=== PATIENT | female | born 1950 | race Caucasian/White ===

== ENCOUNTER 2017-09-09 08:40 | Emergency (ER) | payer MEDICARE, MEDICAID ==
[2017-09-09 08:47] VITALS: RESP 20; O2SAT 98
[2017-09-09 08:55] VITALS: BMI 29.2
[2017-09-09] MEDS ORDERED: Albuterol 0.083% Inhal Sol (2.5 mg/3 mL) UD IH STA ×2 (09:26→09:51)
[2017-09-09] MEDS ORDERED: Albuterol 0.083% Inhal Sol (2.5 mg/3 mL) UD ONE ×2 (09:39→09:49)
[2017-09-09] MEDS ORDERED: Albuterol-Ipratrop 3 mg / 0.5 (3 ml) UD IH STA (09:51)
--- NOTE | 2017-09-09 10:28 | C.PDOC ---
History Of Present Illness 66 year old female presents to the ER via EMS for evaluation of SOB and wheezing. Patient reports she has a Hx of asthma, is currently staying with her daughter who owns cats which aggravate her asthma. She was given IV Solumedrol and albuterol nebs in the field. Patient denies fever/chills, chest pain, palpitations, fever. Time Seen by Provider: 09/09/17 08:46 Chief Complaint (Nursing): Shortness Of Breath History Per: Patient History/Exam Limitations: no limitations Onset/Duration Of Symptoms: Hrs Current Symptoms Are (Timing): Still Present Initiating Event: Other (Exposure to cats) Current Respiratory Medications: See Home Med List Severity: Moderate Associated Symptoms: denies: Fever, Chills, Chest Pain, Heart Racing Past Medical History Reviewed: Historical Data, Nursing Documentation, Vital Signs Vital Signs: Last Vital Signs Temp 98.7 F 09/09/17 10:35 Pulse 80 09/09/17 10:35 Resp 20 09/09/17 10:35 BP 135/75 09/09/17 10:35 Pulse Ox 98 09/09/17 10:51 - Medical History PMH: Asthma, Bronchitis, Cardia Arrhythmia, Diabetes, HTN Family History: States: No Known Family Hx - Social History Hx Tobacco Use: No Hx Alcohol Use: No Hx Substance Use: No - Immunization History Hx Tetanus Toxoid Vaccination: No Hx Influenza Vaccination: No Hx Pneumococcal Vaccination: No Review Of Systems Except As Marked, All Systems Reviewed And Found Negative. Constitutional: Negative for: Fever, Chills Cardiovascular: Negative for: Chest Pain, Palpitations Respiratory: Positive for: Shortness of Breath, Wheezing. Negative for: Cough Gastrointestinal: Negative for: Nausea, Vomiting Genitourinary: Negative for: Dysuria, Hematuria Physical Exam - Physical Exam Appears: Well, Non-toxic, No Acute Distress, Other (Comfortable, speaking in complete sentences.) Skin: Normal Color, Warm, Dry Eye(s): bilateral: Normal Inspection Oral Mucosa: Moist Chest: Symmetrical Cardiovascular: Rhythm Regular Respiratory: No Rales, No Rhonchi, Wheezing (Mild expiratory wheezing B/L ) Gastrointestinal/Abdominal: Normal Exam, Bowel Sounds, Soft, No Tenderness Extremity: Normal ROM, No Pedal Edema, No Calf Tenderness Neurological/Psych: Oriented x3 ED Course And Treatment O2 Sat by Pulse Oximetry: 98 (Room air) Pulse Ox Interpretation: Normal Progress Note: Patient given albuterol/duoneb treatments. Reevaluation Time: 10:30 Reassessment Condition: Improved (Patient reassessed, is resting comfortable and states she feels much better. Peeak flow done by me is 300. Patient states she is comfortable being discharged home, and vitals are WNL. Rxs for albuterol inhaler, prednisone given. Patient instructed to follow up with PMD in 1-2 days, and she understands she should return to ED if symptoms worsen.) Disposition Counseled Patient/Family Regarding: Diagnosis, Need For Followup, Rx Given - Disposition Referrals: Lisette Villanueva MD [Medical Doctor] - Disposition: HOME/ ROUTINE Disposition Time: 10:30 Condition: STABLE Additional Instructions: FOLLOW UP WITH YOUR DOCTOR IN 1-2 DAYS USE MEDICATIONS DIRECTED RETURN TO ER IF SYMPTOMS WORSEN Prescriptions: Albuterol HFA [Ventolin HFA 90 mcg/actuation (8 g)] 0.09 mg IH Q4 PRN #1 puff PRN Reason: Wheezing predniSONE [predniSONE Tab] 60 mg PO DAILY #12 tab Instructions: Asthma (ED) Forms: [employer] (Egyptian) Print Language: ARABIC - POA Present On Arrival: None - Clinical Impression Clinical Impression: Asthma exacerbation - Scribe Statement The provider has reviewed the documentation as recorded by the Scribe Provider Attestation: Shad Zhao All medical record entries made by the Scribe were at my direction and personally dictated by me. I have reviewed the chart and agree that the record accurately reflects my personal performance of the history, physical exam, medical decision making, and the department course for this patient. I have also personally directed, reviewed, and agree with the discharge instructions and disposition.
[2017-09-09 11:01] VITALS: BP 135/75; PULSE 80; TEMP 98.7
== END 2017-09-09 10:35 | disposition home or self-care (01) ==
LOC: C.ER 08:40
DX: J45.901 Unspecified asthma with (acute) exacerbation (principal); I10 Essential (primary) hypertension; E11.9 Type 2 diabetes mellitus without complications

== ENCOUNTER 2017-12-07 07:41 | Emergency (ER) | payer MEDICARE, MEDICAID ==
[2017-12-07 07:46] VITALS: BMI 28.3
--- NOTE | 2017-12-07 08:43 | C.PDOC ---
History Of Present Illness 67-YEAR-OLD FEMALE, PRESENTS TO THE EMERGENCY DEPARTMENT WITH COMPLAINTS OF DRY COUGH, SORE THROAT SINCE YEST. NO FEVER. PRIOR HO FREQ BRONCHITIS LAST EPISODE "YEARS AGO". NO SOB, MENA OTHER ASSOC SX EXAM NARD NONTOXIC HEENT THROAT CLEAR NOSE CLEAR LUNGS DRY COUGH CTA B/L NO W/R/R NO RETRACTION SPEAKING FULL SENTENCES REMAINER NEG Time Seen by Provider: 12/07/17 08:15 Chief Complaint (Nursing): Cough, Cold, Congestion History Per: Patient History/Exam Limitations: no limitations Past Medical History Reviewed: Historical Data, Nursing Documentation, Vital Signs Vital Signs: Last Vital Signs Temp 98.2 F 12/07/17 10:20 Pulse 82 12/07/17 10:20 Resp 16 12/07/17 10:20 BP 144/70 12/07/17 10:20 Pulse Ox 99 12/07/17 10:20 - Medical History PMH: Asthma, Bronchitis, Cardia Arrhythmia, Diabetes, HTN Family History: States: No Known Family Hx - Social History Hx Tobacco Use: No Hx Alcohol Use: No Hx Substance Use: No - Immunization History Hx Tetanus Toxoid Vaccination: No Hx Influenza Vaccination: No Hx Pneumococcal Vaccination: No Review Of Systems Except As Marked, All Systems Reviewed And Found Negative. Constitutional: Negative for: Fever ENT: Negative for: Throat Pain Cardiovascular: Negative for: Chest Pain Respiratory: Positive for: Cough Gastrointestinal: Negative for: Vomiting Musculoskeletal: Negative for: Neck Pain, Back Pain Skin: Negative for: Rash Neurological: Negative for: Weakness, Numbness, Headache, Dizziness Physical Exam - Physical Exam Appears: Non-toxic, No Acute Distress Skin: Normal Color, Warm, Dry, No Rash Head: Normacephalic Eye(s): bilateral: PERRL Nose: Normal Lips: Normal Appearing Neck: Normal ROM Chest: Symmetrical Cardiovascular: Rhythm Regular, No Murmur Respiratory: No Accessory Muscle Use, Other ( DRY COUGH CTA B/L NO W/R/R NO RETRACTION SPEAKING FULL SENTENCES) Extremity: Normal ROM, No Deformity, No Swelling Neurological/Psych: Oriented x3, Normal Speech ED Course And Treatment O2 Sat by Pulse Oximetry: 96 (RA) Pulse Ox Interpretation: Normal Disposition Counseled Patient/Family Regarding: Studies Performed, Diagnosis, Need For Followup, Rx Given - Disposition Referrals: YOUR,PMD [Other] Disposition: HOME/ ROUTINE Disposition Time: 09:57 Condition: IMPROVED Prescriptions: Benzonatate [Tessalon Perles] 200 mg PO TID PRN #15 sgl PRN Reason: Cough Ibuprofen [Motrin] 400 mg PO QID #30 tab Instructions: Cough, Adult (DC) Forms: [facility] (Irish) - Clinical Impression Clinical Impression: Cough - Scribe Statement The provider has reviewed the documentation as recorded by the Scribe (Chaitanya Moscoso) All medical record entries made by the Scribe were at my direction and personally dictated by me. I have reviewed the chart and agree that the record accurately reflects my personal performance of the history, physical exam, medical decision making, and the department course for this patient. I have also personally directed, reviewed, and agree with the discharge instructions and disposition.
[2017-12-07] MEDS ORDERED: Albuterol 0.083% Inhal Sol (2.5 mg/3 mL) UD INH STA (09:13)
[2017-12-07] MEDS ORDERED: Albuterol 0.083% Inhal Sol (2.5 mg/3 mL) UD ONE (09:35)
[2017-12-07 10:22] VITALS: BP 144/70; PULSE 82; RESP 16; TEMP 98.2
[2017-12-07 10:26] VITALS: O2SAT 96
--- NOTE | 2017-12-07 14:19 | RAD ---
HISTORY: Cough COMPARISON: Comparison chest dated 06/30/2014 TECHNIQUE: Chest PA and lateral FINDINGS: LUNGS: Minor linear atelectasis and or scarring left lateral mid -lower lung field. PLEURA: No significant pleural effusion identified. No pneumothorax apparent. CARDIOVASCULAR: Heart size within range of normal OSSEOUS STRUCTURES: Mild multilevel degenerative spondylosis of the thoracic spine. And VISUALIZED UPPER ABDOMEN: Normal. OTHER FINDINGS: None. IMPRESSION: No acute consolidation. Minor linear atelectasis and or scarring left lateral mid to lower lung zone
== END 2017-12-07 10:19 | disposition home or self-care (01) ==
LOC: C.ER 07:41
DX: R05 Cough (principal); J45.909 Unspecified asthma, uncomplicated

== ENCOUNTER 2018-03-21 09:02 | Emergency (ER) | payer MEDICARE, MEDICAID ==
[2018-03-21 09:03] VITALS: BMI 28.3
[2018-03-21 09:13] VITALS: O2SAT 100
[2018-03-21 11:05] VITALS: BP 154/83; PULSE 61; RESP 20; TEMP 97.3
--- NOTE | 2018-03-21 11:05 | C.PDOC ---
History Of Present Illness 67 y/o female with history of DM presents to ED with c/o high sugar level of 324 measured in middle of night. pt took an extra tab of dm meds at 330 am. [t has not yet eaten or taken am meds. pt denies weakness, headache, nausea, vomiting or any other complaints at this time. no fever or chills. no urinary symptoms. Time Seen by Provider: 03/21/18 10:39 Chief Complaint (Nursing): High Blood Sugar History Per: Patient History/Exam Limitations: no limitations Onset/Duration Of Symptoms: Days Current Symptoms Are (Timing): Still Present Past Medical History Reviewed: Historical Data, Nursing Documentation, Vital Signs Vital Signs: Last Vital Signs Temp 97.3 F L 03/21/18 11:04 Pulse 61 03/21/18 11:04 Resp 20 03/21/18 11:04 BP 154/83 H 03/21/18 11:04 Pulse Ox 100 03/21/18 12:03 - Medical History PMH: Asthma, Bronchitis, Cardia Arrhythmia, Diabetes, HTN Surgical History: No Surg Hx Family History: States: No Known Family Hx - Social History Hx Tobacco Use: No Hx Alcohol Use: No Hx Substance Use: No - Immunization History Hx Tetanus Toxoid Vaccination: No Hx Influenza Vaccination: No Hx Pneumococcal Vaccination: No Review Of Systems Constitutional: Negative for: Fever, Chills Gastrointestinal: Negative for: Nausea, Vomiting Neurological: Negative for: Weakness, Headache, Dizziness Physical Exam - Physical Exam Appears: Non-toxic, No Acute Distress Skin: Warm, Dry, No Rash Head: Atraumatic, Normacephalic Eye(s): bilateral: Normal Inspection Oral Mucosa: Moist Neck: Normal ROM, Supple Cardiovascular: Rhythm Regular Respiratory: Normal Breath Sounds, No Rales, No Rhonchi, No Wheezing Gastrointestinal/Abdominal: Soft, No Tenderness, No Guarding, No Rebound Back: No CVA Tenderness, No Paraspinal Tenderness Extremity: Normal ROM, Capillary Refill (<2 seconds) Neurological/Psych: Oriented x3, Normal Speech, Normal Cognition ED Course And Treatment O2 Sat by Pulse Oximetry: 100 (RA) Pulse Ox Interpretation: Normal Medical Decision Making Medical Decision Making: Patient given dose of DM medication, sugar level stabilized and was discharged home. Disposition Counseled Patient/Family Regarding: Diagnosis, Need For Followup - Disposition Referrals: Lisette Villanueva MD [Medical Doctor] - Disposition: HOME/ ROUTINE Disposition Time: 11:05 Condition: GOOD Additional Instructions: Please take your medications as prescribed. Please follow diabetic diet. Please call to make soonest appointment with Dr Villanueva to discuss your medications for diabetes. 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 - Scribe Statement The provider has reviewed the documentation as recorded by the Scribjosé miguel Jerez All medical record entries made by the Sheri were at my direction and personally dictated by me. I have reviewed the chart and agree that the record accurately reflects my personal performance of the history, physical exam, medical decision making, and the department course for this patient. I have also personally directed, reviewed, and agree with the discharge instructions and disposition.
== END 2018-03-21 11:19 | disposition home or self-care (01) ==
LOC: C.ER 09:02
DX: E11.65 Type 2 diabetes mellitus with hyperglycemia (principal); Z79.84 Long term (current) use of oral hypoglycemic drugs

== ENCOUNTER 2018-04-18 12:28 | Emergency (ER) | payer MEDICARE, MEDICAID ==
[2018-04-18 12:43] VITALS: BMI 28.3
[2018-04-18 12:46] VITALS: TEMP 98.2; O2SAT 98
--- NOTE | 2018-04-18 14:00 | C.PDOC ---
History Of Present Illness 67 y/o female with a PMHx of HTN and DM, presents to the ER for evaluation of hypoglycemia. States her sugar is generally somewhat elevated during the day. She takes 1 pill in the morning, Metformin 500mg, and anther pill in the afternoon. States she did not eat this morning, then took her metformin, and went to her adult daycare facility. At the daycare, patient was told she was hypoglycemic and referred to the ER. On arrival finger stick is 351, patient is drinking sugary grape soda. She currently denies any headache, dizziness, chest pain, palpitations, SOB, weakness, or visual changes. PMD: Lisette Villanueva Time Seen by Provider: 04/18/18 13:15 Chief Complaint (Nursing): Medical Clearance History Per: Patient History/Exam Limitations: no limitations Onset/Duration Of Symptoms: Days Current Symptoms Are (Timing): Still Present Past Medical History Reviewed: Historical Data, Nursing Documentation, Vital Signs Vital Signs: Last Vital Signs Temp 98.2 F 04/18/18 12:43 Pulse 78 04/18/18 14:13 Resp 16 04/18/18 14:13 BP 148/85 04/18/18 14:13 Pulse Ox 98 04/18/18 18:24 - Medical History PMH: Arthritis, Asthma, Bronchitis, Cardia Arrhythmia (tachycardia), Diabetes, HTN, Rheumatoid Arthritis Family History: States: Unknown Family Hx - Social History Hx Tobacco Use: No Hx Alcohol Use: No Hx Substance Use: No - Immunization History Hx Tetanus Toxoid Vaccination: No Hx Influenza Vaccination: No Hx Pneumococcal Vaccination: No Review Of Systems Except As Marked, All Systems Reviewed And Found Negative. Constitutional: Positive for: Other (Hyperglycemic). Negative for: Fever, Chills Eyes: Negative for: Vision Change Cardiovascular: Negative for: Chest Pain, Palpitations Respiratory: Negative for: Shortness of Breath Gastrointestinal: Negative for: Nausea, Vomiting Neurological: Negative for: Weakness, Confusion, Altered Mental Status, Headache , Dizziness Physical Exam - Physical Exam Appears: Non-toxic, No Acute Distress Skin: Normal Color, Warm, Dry Head: Atraumatic, Normacephalic Eye(s): bilateral: Normal Inspection, PERRL, EOMI Oral Mucosa: Moist Neck: Normal ROM, Supple Chest: Symmetrical Cardiovascular: Rhythm Regular, No Murmur Respiratory: Normal Breath Sounds, No Rales, No Rhonchi, No Wheezing Gastrointestinal/Abdominal: Soft, No Tenderness, No Distention Back: Normal Inspection Extremity: Bilateral: Atraumatic, Normal Color And Temperature, Normal ROM Pulses: Left Radial: Normal, Right Radial: Normal Neurological/Psych: Oriented x3, Normal Speech, Normal Cranial Nerves, Other ( No focal deficits) Gait: Steady ED Course And Treatment O2 Sat by Pulse Oximetry: 98 (RA) Pulse Ox Interpretation: Normal Medical Decision Making Medical Decision Making: Impression: Hyperglycemia Plan: * Accucheck Progress/Updates: Finger stick is 351. Patient is resting comfortably, with no complaints. Vital signs stable. Case discussed with patients primary doctor, Dr. Lisette Villanueva. Patient advised to take an additional metformin tonight and follow up in the office on Saturday. Disposition Discussed With .: Lisette Villanueva Doctor Will See Patient In The: Office Counseled Patient/Family Regarding: Diagnosis, Need For Followup - Disposition Disposition: HOME/ ROUTINE Disposition Time: 14:00 Condition: STABLE Additional Instructions: Take one more Metformin tab (500mg) this evening. Follow up with your doctor. Avoid drinking juice and soda. Instructions: Hyperglycemia, Adult (DC) Forms: [facility] (Portuguese), General Discharge Instructions - POA Present On Arrival: None - Clinical Impression Clinical Impression: Hyperglycemia - Scribe Statement The provider has reviewed the documentation as recorded by the Scribe (Danielle Golden) Provider Attestation: All medical record entries made by the Scribe were at my direction and personally dictated by me. I have reviewed the chart and agree that the record accurately reflects my personal performance of the history, physical exam, medical decision making, and the department course for this patient. I have also personally directed, reviewed, and agree with the discharge instructions and disposition.
[2018-04-18 14:14] VITALS: BP 148/85; PULSE 78; RESP 16
== END 2018-04-18 14:13 | disposition home or self-care (01) ==
LOC: MERGE 12:28 → C.ER 12:28
DX: E11.65 Type 2 diabetes mellitus with hyperglycemia (principal); I10 Essential (primary) hypertension; M06.9 Rheumatoid arthritis, unspecified

== ENCOUNTER 2018-06-02 07:18 | Emergency (ER) | payer MEDICARE, MEDICAID ==
[2018-06-02 07:19] VITALS: BMI 28.3
[2018-06-02] MEDS ORDERED: Albuterol-Ipratrop 3 mg / 0.5 (3 ml) UD INH STA ×2 (07:38→08:15)
[2018-06-02 07:49] VITALS: O2SAT 97
[2018-06-02] MEDS ORDERED: Albuterol-Ipratrop 3 mg / 0.5 (3 ml) UD ONE ×3 (08:19→08:35)
--- NOTE | 2018-06-02 08:35 | C.PDOC ---
History Of Present Illness 67 y/o female with history of Asthma presents to ED with c/o dry cough and sob since earlier today. Patient states she has prescription for nebulizer machine but cannot afford it. Patient is speaking in full sentences and denies chest pain, nausea, vomiting or any other complaints at this time. Time Seen by Provider: 06/02/18 07:30 Chief Complaint (Nursing): Shortness Of Breath History Per: Patient History/Exam Limitations: no limitations Onset/Duration Of Symptoms: Hrs Current Symptoms Are (Timing): Still Present Initiating Event: Upper Respiratory Illness Past Medical History Reviewed: Historical Data, Nursing Documentation, Vital Signs Vital Signs: Last Vital Signs Temp 98 F 06/02/18 09:19 Pulse 77 06/02/18 09:19 Resp 18 06/02/18 09:19 BP 123/76 06/02/18 09:19 Pulse Ox 97 06/02/18 09:20 - Medical History PMH: Arthritis, Asthma, Bronchitis, Cardia Arrhythmia, Diabetes, HTN, Rheumatoid Arthritis Surgical History: No Surg Hx Family History: States: No Known Family Hx - Social History Hx Tobacco Use: No Hx Alcohol Use: No Hx Substance Use: No - Immunization History Hx Tetanus Toxoid Vaccination: No Hx Influenza Vaccination: No Hx Pneumococcal Vaccination: No Review Of Systems Except As Marked, All Systems Reviewed And Found Negative. Respiratory: Positive for: Cough, Shortness of Breath Physical Exam - Physical Exam Appears: Non-toxic, No Acute Distress Skin: Warm, Dry, No Rash Head: Atraumatic, Normacephalic Eye(s): bilateral: Normal Inspection Oral Mucosa: Moist Neck: Supple Cardiovascular: Rhythm Regular Respiratory: No Rales, No Rhonchi, Wheezing (right faint expiratory) Gastrointestinal/Abdominal: Soft, No Tenderness, No Guarding, No Rebound Extremity: No Pedal Edema, Capillary Refill (<2 seconds) Neurological/Psych: Oriented x3, Normal Speech, Normal Cognition ED Course And Treatment O2 Sat by Pulse Oximetry: 97 (RA) Pulse Ox Interpretation: Normal Medical Decision Making Medical Decision Making: Assessment: Asthma On re eval patient reports improvement, sob resolved, patient speaking in full sentences and agrees with plan of discharged with instructed follow up to pmd in 1-2 days. Disposition Counseled Patient/Family Regarding: Studies Performed, Diagnosis, Need For Followup, Rx Given - Disposition Referrals: Lisette Villanueva MD [Medical Doctor] - Disposition: HOME/ ROUTINE Disposition Time: 09:07 Condition: STABLE Additional Instructions: follow up with your doctor within 2 days call to make an appointment take medications as prescribed return to ER if symptoms worsens or progress Prescriptions: Albuterol HFA [Ventolin HFA 90 mcg/actuation (8 g)] 2 puff IH [id number] #1 puff predniSONE [predniSONE Tab] 50 mg PO DAILY #4 tab Instructions: Asthma in Adults Forms: [facility] (Citizen Of [place]), General Discharge Instructions - Clinical Impression Clinical Impression: Asthma - Scribe Statement The provider has reviewed the documentation as recorded by the Scribe Samy Jerez All medical record entries made by the Geraldineibjosé miguel were at my direction and personally dictated by me. I have reviewed the chart and agree that the record accurately reflects my personal performance of the history, physical exam, medical decision making, and the department course for this patient. I have also personally directed, reviewed, and agree with the discharge instructions and disposition.
[2018-06-02 09:20] VITALS: BP 123/76; PULSE 77; RESP 18; TEMP 98
== END 2018-06-02 09:20 | disposition home or self-care (01) ==
LOC: C.ER 07:18
DX: J45.909 Unspecified asthma, uncomplicated (principal)

== ENCOUNTER 2018-12-24 00:40 | Emergency (ER) | payer MEDICARE, MEDICAID ==
[2018-12-24 00:56] VITALS: BMI 27.3
[2018-12-24 01:00] VITALS: TEMP 98.4
--- NOTE | 2018-12-24 01:15 | C.PDOC ---
History Of Present Illness pt has been walking a lot and complains of b/l foot pain. No f/c/n/v. no trauma. No sob. Time Seen by Provider: 12/24/18 01:15 Chief Complaint (Nursing): Lower Extremity Problem/Injury Past Medical History Reviewed: Historical Data, Nursing Documentation, Vital Signs Vital Signs: Last Vital Signs Temp 98.4 F 12/24/18 00:56 Pulse 89 12/24/18 00:56 Resp 19 12/24/18 00:56 BP 138/83 12/24/18 00:56 Pulse Ox 96 12/24/18 00:56 - Medical History PMH: Arthritis, Asthma, Bronchitis, Cardia Arrhythmia, Diabetes, HTN, Rheumatoid Arthritis Family History: States: No Known Family Hx - Social History Hx Tobacco Use: No Hx Alcohol Use: No Hx Substance Use: No - Immunization History Hx Tetanus Toxoid Vaccination: No Hx Influenza Vaccination: No Hx Pneumococcal Vaccination: No Review Of Systems Constitutional: Negative for: Fever, Chills Musculoskeletal: Positive for: Foot Pain Skin: Negative for: Rash Neurological: Negative for: Weakness Psych: Negative for: Anxiety Physical Exam - Physical Exam Appears: Non-toxic, No Acute Distress Skin: Warm, Dry Extremity: Normal ROM, No Pedal Edema, No Calf Tenderness, Capillary Refill (wnl), No Swelling, Other (b/l bunions, arthitic changes) Extremity: Bilateral: Atraumatic Pulses: Left Dorsalis Pedis: Normal, Right Dorsalis Pedis: Normal Neurological/Psych: Oriented x3 Gait: Steady ED Course And Treatment O2 Sat by Pulse Oximetry: 96 Pulse Ox Interpretation: Normal Reevaluation Time: 05:06 Reassessment Condition: Improved Medical Decision Making Medical Decision Making: Upon provider reevaluation patient is feeling better, is medically stable, and r equires no further treatment in the ED at this time. Patient will be discharged home . Counseling was provided and all questions were answered regarding diagnosis and need for follow up with the referred clinic. There is agreement to discharge plan. Return if symptoms persist or worsen. Disposition Counseled Patient/Family Regarding: Studies Performed, Diagnosis, Need For Followup - Disposition Referrals: Podiatry Clinic [Outside] Disposition: HOME/ ROUTINE Disposition Time: 01:15 Condition: FAIR Instructions: Metatarsalgia (DC), Bunion (DC) Forms: [employer] (Australian) - Clinical Impression Clinical Impression: Foot pain
[2018-12-24 05:37] VITALS: BP 118/70; PULSE 70; RESP 12; O2SAT 98
== END 2018-12-24 05:38 | disposition home or self-care (01) ==
LOC: C.ER 00:40
DX: M79.671 Pain in right foot (principal); M79.672 Pain in left foot; E11.9 Type 2 diabetes mellitus without complications; I10 Essential (primary) hypertension; M06.9 Rheumatoid arthritis, unspecified